=== PATIENT | male | born 1985 | race Caucasian/White ===

== ENCOUNTER 2017-12-05 10:29 | Emergency (ER) | END 2017-12-05 12:28 | disposition home or self-care (01) ==

== ENCOUNTER 2018-05-13 08:38 | Emergency (ER) | END 2018-05-13 11:02 | disposition home or self-care (01) ==

== ENCOUNTER 2018-09-08 00:40 | Emergency (ER) | END 2018-09-08 02:40 | disposition home or self-care (01) ==